=== PATIENT | male | born 1935 | race Caucasian/White ===

== ENCOUNTER → 2024-06-27 09:12 | Outpatient (REF) | payer MEDICARE, BC, SELFPAY ==
[2024-06-27 11:10] LABS: Hematocrit 33.3 % (39.0-52.0); Mean Corpuscular Hgb 38.8 pg (27.0-31.0); Mean Corpuscular Volume 107.8 fL (80.0-94.0); Mean Platelet Volume 9.8 fL (7.4-10.4); Platelet Count 120 10^3/uL (130-400); Red Blood Cell Count 3.09 10^6/uL (4.70-6.10); Red Cell Dist. Width 15.6 % (11.5-14.5); White Blood Cell Count 5.8 10^3/uL (4.8-10.8)
[2024-06-27 11:16] LABS: Glycohemoglobin (HgbA1c) 5.3 % (4.0-5.6)
[2024-06-27 11:44] LABS: ALT (SGPT) 42 U/L (0-50); AST (SGOT) 44 U/L (17-59); Albumin 4.3 g/dl (3.5-5.0); Alkaline Phosphatase 104 U/L (38-126); Blood Urea Nitrogen 24 mg/dl (9-20); Calcium 9.4 mg/dl (8.4-10.2); Carbon Dioxide 29 mmol/L (22-30); Chloride 105 mmol/L (98-107); Glucose 103 mg/dl (70-99); HDL Cholesterol 65 mg/dl; LDL Cholesterol, Calculated 44 mg/dl; Potassium 4.3 mmol/L (3.5-5.1); Sodium 143 mmol/L (135-145); Total Bilirubin 1.1 mg/dl (0.2-1.3); Total Cholesterol 133 mg/dl (50-199); Total Protein 6.7 g/dl (6.3-8.2); Triglyceride 120 mg/dl (10-149); Very Low Density Lipoprotein 24 mg/dl (0-30); eGFR > 60.00
[2024-06-27 11:54] LABS: % Basophils 0.7 % (0-2); % Eosinophils 1.4 % (0-6); % Immature Granulocytes 0.7 % (0-0.5); % Lymphocytes 27.4 % (20.5-51.1); % Neutrophils 61.8 % (42.2-75.2); Absolute Eosinophils 0.1 10^3/uL (0-0.7); Absolute Lymphocytes 1.6 10^3/uL (1.2-3.4); Absolute Monocytes 0.5 10^3/uL (0.1-0.6); Absolute Neutrophils 3.6 10^3/uL (1.4-6.5); Nucleated Red Blood Cells % 0 % (-)
[2024-06-28 17:26] LABS: PSA Total <0.1 ng/mL (0.0-4.0)
== END ==
LOC: REG 09:12
PROVIDERS: ATTENDING PHYSICIAN Internal Medicine
DX: Z00.00 Encounter for general adult medical examination without abnormal findings (principal); E78.5 Hyperlipidemia, unspecified; R73.01 Impaired fasting glucose; Z85.46 Personal history of malignant neoplasm of prostate; R53.83 Other fatigue
CPT/HCPCS: 36415; 80053; 80061; 83036; 84153; 84154; 84443; 85025

== ENCOUNTER → 2024-07-20 07:02 | Outpatient (REF) | payer MEDICARE, BC, SELFPAY | LOC: RCS 07:02 | PROVIDERS: ATTENDING PHYSICIAN Internal Medicine Cardiovascular Disease; FAMILY PHYSICIAN Internal Medicine | DX: I35.0 Nonrheumatic aortic (valve) stenosis (principal) | CPT/HCPCS: 93306 ==

== ENCOUNTER → 2024-08-10 09:12 | Outpatient (REF) | payer MEDICARE, BC, SELFPAY ==
[2024-08-10 10:11] LABS: % Basophils 0.5 % (0-2); % Immature Granulocytes 0.6 % (0-0.5); % Lymphocytes 21.9 % (20.5-51.1); Absolute Eosinophils 0.4 10^3/uL (0-0.7); Absolute Lymphocytes 1.4 10^3/uL (1.2-3.4); Absolute Monocytes 0.7 10^3/uL (0.1-0.6); Absolute Neutrophils 3.6 10^3/uL (1.4-6.5); Hemoglobin 10.9 g/dL (13.0-18.0); Mean Corpuscular Hgb 34.1 pg (27.0-31.0); Mean Corpuscular Volume 103.1 fL (80.0-94.0); Mean Platelet Volume 9.8 fL (7.4-10.4); Nucleated Red Blood Cells % 0 % (-); Platelet Count 116 10^3/uL (130-400); Red Cell Dist. Width 13.9 % (11.5-14.5); White Blood Cell Count 6.2 10^3/uL (4.8-10.8)
[2024-08-10 10:29] LABS: Albumin 3.9 g/dl (3.5-5.0); Carbon Dioxide 30 mmol/L (22-30); eGFR > 60.00
[2024-08-10 10:40] LABS: ALT (SGPT) 33 U/L (0-50); AST (SGOT) 38 U/L (17-59); Alkaline Phosphatase 92 U/L (38-126); Blood Urea Nitrogen 27 mg/dl (9-20); Calcium 8.9 mg/dl (8.4-10.2); Chloride 108 mmol/L (98-107); Glucose 99 mg/dl (70-99); Potassium 4.8 mmol/L (3.5-5.1); Sodium 139 mmol/L (135-145); Total Bilirubin 0.9 mg/dl (0.2-1.3)
[2024-08-10 11:29] LABS: Reticulocyte Count 2.7 % (0.4-2.8)
[2024-08-10 11:39] LABS: Folate > 20.0 ng/ml (2.76-20); Vitamin B12 363 pg/ml (239-931)
[2024-08-10 11:44] LABS: LDH 317 U/L (120-246)
[2024-08-11 23:13] LABS: Haptoglobin 76 mg/dL (30-200)
[2024-08-12 13:24] LABS: Number Of Markers 31 markers; Source Blood
== END ==
LOC: REG 09:12
PROVIDERS: ATTENDING PHYSICIAN Internal Medicine Hematology & Oncology; FAMILY PHYSICIAN Internal Medicine
DX: R71.8 Other abnormality of red blood cells (principal); D69.6 Thrombocytopenia, unspecified; D53.9 Nutritional anemia, unspecified
CPT/HCPCS: 36415; 80053; 82607; 82746; 82784; 83010; 83521; 83615; 84155; 84165; 85025; 85045; 86334

== ENCOUNTER → 2025-02-28 07:46 | Outpatient (REF) | payer MEDICARE, BC, SELFPAY | LOC: RAD 07:46 | PROVIDERS: ATTENDING PHYSICIAN Internal Medicine | DX: R14.0 Abdominal distension (gaseous) (principal) | CPT/HCPCS: 76700 ==

== ENCOUNTER → 2025-03-01 13:47 | Outpatient (REF) | payer MEDICARE, BC, SELFPAY ==
[2025-03-01 15:52] LABS: Hematocrit 24.5 % (39.0-52.0); Hemoglobin 8.8 g/dL (13.0-18.0); Mean Corp Hgb Conc. 35.9 g/dL (33.0-37.0); Mean Corpuscular Volume 112.9 fL (80.0-94.0); Nucleated Red Blood Cells % 0 % (-); Platelet Count 107 10^3/uL (130-400); Red Cell Dist. Width 15.5 % (11.5-14.5)
[2025-03-01 16:02] LABS: ALT (SGPT) 35 U/L (0-50); AST (SGOT) 49 U/L (17-59); Albumin 3.7 g/dl (3.5-5.0); Alkaline Phosphatase 160 U/L (38-126); Blood Urea Nitrogen 28 mg/dl (9-20); Calcium 8.8 mg/dl (8.4-10.2); Carbon Dioxide 30 mmol/L (22-30); Chloride 105 mmol/L (98-107); Glucose 101 mg/dl (70-99); Potassium 5.0 mmol/L (3.5-5.1); Sodium 136 mmol/L (135-145); Total Protein 5.9 g/dl (6.3-8.2); eGFR > 60.00
== END ==
LOC: REG 13:47
PROVIDERS: ATTENDING PHYSICIAN Internal Medicine
DX: K92.2 Gastrointestinal hemorrhage, unspecified (principal)
CPT/HCPCS: 36415; 80053; 85025

== ENCOUNTER → 2025-03-05 11:28 | Outpatient (REF) | payer MEDICARE, BC, SELFPAY ==
[2025-03-05 12:31] LABS: Hematocrit 26.7 % (39.0-52.0); Hemoglobin 9.1 g/dL (13.0-18.0); Mean Corp Hgb Conc. 34.1 g/dL (33.0-37.0); Mean Corpuscular Volume 108.1 fL (80.0-94.0); Platelet Count 129 10^3/uL (130-400); Red Cell Dist. Width 14.4 % (11.5-14.5)
[2025-03-05 13:55] LABS: Nucleated Red Blood Cells % 0 % (-)
[2025-03-05 16:14] LABS: ALT (SGPT) 29 U/L (0-50); AST (SGOT) 41 U/L (17-59); Albumin 3.8 g/dl (3.5-5.0); Alkaline Phosphatase 142 U/L (38-126); Blood Urea Nitrogen 24 mg/dl (9-20); Calcium 8.8 mg/dl (8.4-10.2); Carbon Dioxide 29 mmol/L (22-30); Chloride 106 mmol/L (98-107); Glucose 106 mg/dl (70-99); Potassium 4.8 mmol/L (3.5-5.1); Sodium 137 mmol/L (135-145); Total Protein 6.0 g/dl (6.3-8.2); eGFR > 60.00
== END ==
LOC: REG 11:28
PROVIDERS: ATTENDING PHYSICIAN Internal Medicine
DX: K92.2 Gastrointestinal hemorrhage, unspecified (principal); I10 Essential (primary) hypertension; K74.60 Unspecified cirrhosis of liver
CPT/HCPCS: 36415; 80053; 85025

== ENCOUNTER 2025-03-22 17:26 | Inpatient (IN) | payer MEDICARE, BC, SELFPAY ==
[2025-03-22] VITALS (7 sets, daily range): BP systolic 64–140; BP diastolic 49–81; BMI 32.9
[2025-03-22 13:10] LABS: Hematocrit 27.9 % (39.0-52.0); Hemoglobin 9.8 g/dL (13.0-18.0); Mean Corp Hgb Conc. 35.1 g/dL (33.0-37.0); Mean Corpuscular Volume 104.1 fL (80.0-94.0); Platelet Count 110 10^3/uL (130-400); Red Cell Dist. Width 14.4 % (11.5-14.5)
[2025-03-22 13:17] LABS: APTT 32.7 Sec (23.4-35.0)
[2025-03-22 13:23] LABS: ALT (SGPT) 25 U/L (0-50); AST (SGOT) 39 U/L (17-59); Albumin 3.3 g/dl (3.5-5.0); Alkaline Phosphatase 146 U/L (38-126); Blood Urea Nitrogen 23 mg/dl (9-20); Calcium 8.5 mg/dl (8.4-10.2); Carbon Dioxide 25 mmol/L (22-30); Chloride 107 mmol/L (98-107); Glucose 102 mg/dl (70-99); Lipase 77 U/L (23-300); Potassium 4.6 mmol/L (3.5-5.1); Sodium 136 mmol/L (135-145); Total Protein 5.5 g/dl (6.3-8.2); eGFR > 60.00
[2025-03-22 14:52] LABS: Nucleated Red Blood Cells % 0 % (-)
[2025-03-22 15:18] LABS: INR 1.02; PT 13.5 Sec (11.4-14.6)
--- NOTE | 2025-03-22 15:25 | ED.GENMED ---
History of Present Illness
General
Chief Complaint: Abdominal Pain
Source: patient
Exam Limitations: none
Time Seen by Provider: 03/22/25 15:08
Nursing documentation reviewed up to this point in time: agreed with
History of Present Illness
History of Present Illness:
The patient is a 89-year-old man sent in from for admission. Patient reports over the last month he has developed ascites. Additionally, about a month ago, he had 4 days of black stool which is now resolved. Patient is having normal brown
bowel movements. His last bowel movement was today. Patient denies all physical pain at this time but states his abdomen feels really tight and distended. He denies fevers and chills. He also reports he started to get swelling in both of his
legs. He denies being on any blood thinners.
Past History
Past History
ED Past Medical History: HTN, Hypercholesterolemia and Other (Kidney stones)
ED Past Surgical History: Appendectomy and Orthopedic (right femur)
Social History
Tobacco: Non-smoker
Alcohol: None
Drug: None
Personal:
Living: with family
Employment: Retired
Family History
Family History: Other
Review of Systems
Review of Systems
Allergies reviewed?: Yes
All Other Systems: ROS reviewed and negative except as documented in HPI and ROS
Constitutional: Reports no symptoms
EENT: Reports no symptoms
Respiratory: Reports no symptoms
Cardiac: Reports no symptoms
ABD/GI: Reports abdominal pain
: Reports no symptoms
Musculoskeletal: Reports edema
Skin: Reports no symptoms
Neurological: Reports no symptoms
Endocrine: Reports no symptoms
Hematologic/Lymphatic: Reports no symptoms
Psychiatric: Reports no symptoms
Phy Exam
Physical Exam
Physical Exam:
Physical Exam
General: Patient appears pale but in no acute respiratory distress. Walking comfortably
Neck: supple. no meningeal signs. normal psoterior pharynx
Heart: s1/s2 regular rate and rhythm, murmur present. equal radial pulses.
Lungs: no acute respiratory distress. clear bilaterally
Abdomen: Distended, firm, ascites present, hypoactive bowel sounds
Neuro: alert and oriented. no focal neurological deficits
Skin: no rash
Psychiatric: well kept. interactive and cooperative
Extremities: 2+ pitting edema. Negative Homans' sign
Course
Orders/Labs/Results
Orders:
Orders
03/22/25 12:49
Complete Blood Count/With Diff Urgent
Comprehensive Metabolic Panel Urgent
Lipase Urgent
PTT Urgent
Prothrombin Time Urgent
Comment: ADD ON
03/22/25 15:01
Add On- LAB Urgent
Tests Added?: PT/ INR
03/22/25 15:04
IRAD CONSULT Urgent
Consulting Provider: Rachel Julien
Was physician already notified: Yes
Procedure being ordered, including laterality if applicable: paracentesis
Acknowledgement that appropriate orders are entered: Yes
03/22/25 16:00
Body Fluid Cell Count Routine
What is the Body Fluid: ascites
Date Specimen was Collected: 03/22/25
Time Specimen was Collected: 15:45
Fluid Culture with Gram Stain Routine
SARWAT Source: Peritoneal Fluid
Specimen Description:
Date Specimen was Collected: 03/22/25
Time Specimen was Collected: 15:45
Abnormal Lab Results
03/22/25
12:49
RBC 2.68 L 10^6/uL
(4.70-6.10)
Hgb 9.8 L g/dL
(13.0-18.0)
Hct 27.9 L %
(39.0-52.0)
MCV 104.1 H fL
(80.0-94.0)
MCH 36.6 H pg
(27.0-31.0)
Plt Count 110 L 10^3/uL
(130-400)
Immature Gran % 0.6 H %
(0-0.5)
Monocytes % 10.0 H %
(1.7-9.3)
BUN 23 H mg/dl
(9-20)
Glucose 102 H mg/dl
(70-99)
Alkaline Phosphatase 146 H U/L
(38-126)
Total Protein 5.5 L g/dl
(6.3-8.2)
Albumin 3.3 L g/dl
(3.5-5.0)
03/22/25 12:49
03/22/25 12:49
Vital Signs
Initial and Last Documented VS:
Initial Vital Signs
Temp Pulse Resp BP Pulse Ox
98.3 F 66 18 97/58 97
03/22/25 12:26 03/22/25 12:26 03/22/25 12:26 03/22/25 12:26 03/22/25 12:26
Last Documented Vital Signs
Temp Pulse Resp BP Pulse Ox
97.8 F 64 16 124/56 97
03/22/25 15:30 03/22/25 15:30 03/22/25 15:30 03/22/25 15:30 03/22/25 15:30
MDM/Problems Addressed
Differential Diagnosis Includes:
Acute liver failure, acute renal failure, acute hyponatremia
MDM/Problems Addressed:
Patient presents with subacute ascites and edema as well as resolved history of GI bleed
Chronic conditions affecting care: HTN
Acute Exacerbation and/or Progression of Chronic Illness:
Patient's blood pressure is on the low side. I suspect this is some degree due to third spacing. Patient is not symptomatic and denies no lightheadedness. Certainly, he is not hypertensive.
Acute Exacerbation and/or Progression of Chronic Illness: HTN
*Pulse Oximetry
SaO2: 97
Oxygen Mode of Delivery: Room air
Patient hypoxic: no
*EKG
Interpreted by ED Provider?: NA
*Help Aid Interpretation
Rate: normal
Interpretation: normal
Rhythm: sinus
*Critical Care Note
Total Time (30-74mins, 75-104mins- exclusive of procedures): Not Applicable
ED Attending Note
-
Portions of this chart may have been created with voice recognition software.� Occasional wrong word or��sound alike� substitutions may have occurred due to the inherent limitations of voice recognition software.
Discharge Plan
Departure
Patient Disposition: Admit
Date of Disposition: 03/22/25
Time of Disposition: 15:37
Admit to: Med/Surg
Presentation/result/management discussed w/ accepting MD/DO: Hospitalist
Patient with high blood pressure during this ER visit?: No
Condition: Good
Covid-19: Not Applicable
Discharge Problem:
Ascites, Acute blood loss anemia
Prescriptions:
No Action
rivaroxaban [Xarelto] 15 MG tablet
15 mg PO BID Qty: 42 0RF
L.acid-L.casei-B.bif-B.mady-FOS [Probiotic Blend] 1 EACH capsule
1 ea PO DAILY
lisinopril 20 MG tablet
20 mg PO DAILY
docusate sodium 100 MG capsule
100 mg PO DAILY
atenolol 50 MG tablet
50 mg PO DAILY
magnesium 200 MG tablet
400 mg PO DAILY
cholecalciferol (vitamin D3) [Vitamin D3] 2,000 UNIT capsule
2,000 unit PO DAILY
omega 2-ksy-aoi-fish oil [Fish Oil] 1 EACH capsule
1 ea PO BID
sennosides [senna] 1 TABLET tablet
2 tab PO BID 0RF
acetaminophen 325 MG tablet
650 mg PO QID 0RF
aspirin 325 MG tablet,delayed release (DR/EC)
325 mg PO DAILY 0RF
amoxicillin-pot clavulanate 1 TABLET tablet
1 tab PO Q12 Qty: 22 0RF
Interventions
Interventions:
*General Assessment Last Done: 03/22/25 12:26
*Neglect/Abuse Screening Last Done: 03/22/25 15:19
*ED COVID-19 Vaccine History Last Done: 03/22/25 12:26
*ED Influenza Vaccine History Last Done: 03/22/25 12:26
[facility] Fall Risk Assessment Tool Last Done: 03/22/25 15:21
*Risk Screen - Suicide (C-SSRS) Last Done: 03/22/25 12:13
SK-Zuznln-Fslskbbqwl Assessment Last Done: 03/22/25 15:19
Discharge Date and Time
Print Language: PASHTO
--- NOTE | 2025-03-22 16:55 | HPS.HSE ---
Family Physician
-
Family Physician: INTERVIEWE UNKNOWN - PT NOT
Chief Complaint
-
abdominal distention
History of Present Illness
89-year-old male past medical history of hypertension, renal calculi, hypercholesteremia, presenting for ascites over the past month. A month ago he had 4 days of black stool which is now resolved. He is having normal brown bowel movements now.
Last bowel movement today. His abdomen feels solid and distended. No fevers or chills. He has swelling in both legs. He denied any shortness of breath.
He was sent in for abdominal ultrasound on 02/28 which showed ascites/cirrhosis. He was recommended to follow-up with GI and saw Dr. Julien today who sentiment to the hospital for paracentesis.
He denied significant alcohol use in the past. Denies smoking.
His father had cirrhosis from alcohol use.
Medical History
Past Medical History
Past Medical History: Reports Other (hypertension, renal calculi, hypercholesteremia)
Past Surgical History: Reports Other ( Appendectomy, nephrostolithotomy, cataract extraction, bilateral carpal tunnel release, rotator cuff surgery, hernia repair, knee surgery,)
Social History
Tobacco: Non-smoker
Alcohol: None
Drug: None
Family History
Family History: Not pertinent
Allergies / Home Medications
Allergies reflects when Allergies were last updated in [facility].
Home Medications with original date entered in [facility]
Allergy/Medication List:
Allergies
Allergy/AdvReac Type Severity Reaction Status Date / Time
No Known Allergies Allergy Verified 03/22/25 12:30
Home Medications
L.acidophil-L.casei-B.bifid-B.longum-FOS 2 billion cell-50 mg capsule (Probiotic Blend) 1 ea PO DAILY 03/14/18
atenolol 50 mg tablet 50 mg PO DAILY 03/14/18
cholecalciferol (vitamin D3) 50 mcg (2,000 unit) capsule (Vitamin D3) 2,000 unit PO DAILY 03/14/18
docusate sodium 100 mg capsule 100 mg PO DAILY 03/14/18
lisinopril 20 mg tablet 20 mg PO DAILY 03/14/18
magnesium 200 mg tablet 400 mg PO DAILY 03/14/18
omega 6-sqc-zuk-fish oil 300 mg-1,000 mg capsule (Fish Oil) 1 ea PO BID 03/14/18
acetaminophen 325 mg tablet 650 mg (2 x 325 mg) PO QID 03/24/18
amoxicillin 500 mg-potassium clavulanate 125 mg tablet 1 tab PO Q12 ##22 03/24/18
aspirin 325 mg tablet,delayed release 325 mg PO DAILY 03/24/18
sennosides 8.6 mg tablet (senna) 2 tab PO BID 03/24/18
rivaroxaban 15 mg tablet (Xarelto) 15 mg PO BID #42 tabs 03/27/18
Review of Systems
-
History Source: Patient
A 12 point ROS was completed and negative except as noted: Yes
Constitutional: Reports No Symptoms
EENT: Reports No Symptoms
Respiratory: Reports No Symptoms
Cardiac: Reports No Symptoms
Abdomen/GI: Reports See HPI
: Reports No Symptoms
Musculoskeletal: Reports No Symptoms
Skin: Reports No Symptoms
Neurological: Reports No Symptoms
Endocrine: Reports No Symptoms
Hematologic/Lymphatic: Reports No Symptoms
Psych: Reports No Symptoms
Physical Exam
Vital Signs
Vital Signs
Temp Pulse Resp BP Pulse Ox
97.8 F 64 16 124/56 97
03/22/25 15:30 03/22/25 15:30 03/22/25 15:30 03/22/25 15:30 03/22/25 15:30
Physical Exam
General: Well Developed, Well Nourished and No Apparent Distress
HEENT: NormoCephalic, Moist mucous membranes and Atraumatic
Respiratory: Clear
Cardiac: S1/S2 and Regular Rhythm; No Murmur or Rub
GI: Soft, Non Tender, Non Distended and Normal Bowel Sounds; No Organomegaly
Rectal: Deferred by Provider
Musculoskeletal: No Clubbing, No Cyanosis and No Edema
Skin: No Rash
Neuro: Nonfocal/grossly intact
Laboratory Results
-
03/22/25 12:49
03/22/25 12:49
Laboratory Results
PT 13.5 Sec (11.4-14.6) 03/22/25 12:49
INR 1.02 03/22/25 12:49
APTT 32.7 Sec (23.4-35.0) 03/22/25 12:49
Total Bilirubin 0.7 mg/dl (0.2-1.3) 03/22/25 12:49
AST 39 U/L (17-59) 03/22/25 12:49
ALT 25 U/L (0-50) 03/22/25 12:49
Alkaline Phosphatase 146 U/L (38-126) H 03/22/25 12:49
Lipase 77 U/L (23-300) 03/22/25 12:49
Data Reviewed
-
Lab Data: Labs Reviewed by me
Old Records: Reviewed
Impression/Plan
-
IMPRESSION:
PLAN:
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
- IR for paracentesis
- Fluid studies sent
- GI consulted
# Recent melena
- Now resolved
- Needs outpatient EGD
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
- Stable
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
- Hemoglobin stable 9.8
Essential hypertension
Hypercholesteremia
History of renal calculi
Full code
DVT prophylaxis -heparin
Regular diet
--- NOTE | 2025-03-22 17:22 | CM ---
Chart reviewed. Spoke with pt at ED bedside
Lives with in a split house [address]
Pt independent with ADLs and ambulation
no DME
PCP Veronica Preston
[facility] in [place]
no hx of SNF distant use of VN does not remember name
DCP is to go home no needs
and family can drive him home
CM will continue to follow up for any dcp needs
[2025-03-22 18:35] LABS: Body Fluid Second Tech CMC
--- NOTE | 2025-03-22 19:10 | PTCARENOTE ---
Received patient from ER around 183 via stretcher in stable condition. VS stable. Patient oriented to room. Call barger in reach.
[2025-03-22] MEDS: HEPARIN 5000 UNITS SC (21:06)
[2025-03-23 05:43] LABS: Hematocrit 26.8 % (39.0-52.0); Hemoglobin 9.4 g/dL (13.0-18.0); Mean Corp Hgb Conc. 35.1 g/dL (33.0-37.0); Mean Corpuscular Volume 106.8 fL (80.0-94.0); Platelet Count 115 10^3/uL (130-400); Red Cell Dist. Width 14.6 % (11.5-14.5)
[2025-03-23 06:07] LABS: ALT (SGPT) 23 U/L (0-50); AST (SGOT) 37 U/L (17-59); Albumin 2.8 g/dl (3.5-5.0); Alkaline Phosphatase 127 U/L (38-126); Blood Urea Nitrogen 22 mg/dl (9-20); Calcium 8.1 mg/dl (8.4-10.2); Carbon Dioxide 30 mmol/L (22-30); Chloride 104 mmol/L (98-107); Estimated Creatinine Clearance 54 ml/min; Glucose 97 mg/dl (70-99); Potassium 4.6 mmol/L (3.5-5.1); Sodium 136 mmol/L (135-145); Total Protein 4.9 g/dl (6.3-8.2); eGFR > 60.00
[2025-03-23 07:35] VITALS: BP 135/58
[2025-03-23 07:36] LABS: Nucleated Red Blood Cells % 0 % (-)
--- NOTE | 2025-03-23 08:20 | W.PN.HOSP.TC ---
Today's Communication/Plan
-
GI consult.
change diet to low-sodium and fluid restriction.
Consider adding diuretic
Assessment / Plan
Assessment / Plan
Impression:
The patient is an 89-year-old male with a past medical history of hypertension, renal calculi, and hypercholesterolemia, presenting with ascites for the past month. Approximately one month ago, he experienced four days of black stools, which have
since resolved; he is now having normal brown bowel movements, with the last occurring day of admit. He reports that his abdomen feels solid and distended, and he has noticed swelling in both legs. He denies fever, chills, or shortness of breath. An
abdominal ultrasound performed on 02/28 revealed ascites and cirrhosis. He was advised to follow up with gastroenterology and saw Dr. Julien today, who referred him to the hospital for paracentesis. The patient denies significant alcohol use and
smoking history. His family history is notable for his father having cirrhosis secondary to alcohol use.
Assessment/plan:
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
Abdominal Us shows:
The liver appears coarsened suggestive of chronic liver disease/cirrhosis. There is associated splenomegaly as well as small volume abdominal pelvic ascites likely secondary to portal hypertension.
Bilateral renal cysts.
The gallbladder wall appears mildly thickened which is likely sequelae of chronic liver disease
IR consulted , S/P paracentesis; fluid studies sent.
GI consulted.
Denies significant alcohol use.
Family history: father with cirrhosis due to alcohol.
Low-sodium diet with 1500 cc water restriction
May consider adding low-dose diuretic if okay with GI
Recent Melena (Resolved)
Occurred one month ago; now resolved.
Needs Endoscopic evaluation.
Gi consulted
Hemoglobin stable
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
Stable.
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
Hemoglobin stable at 9.8.
Essential Hypertension
Continue home meds once verified
Hypercholesterolemia
Continue home meds once verified
History of Renal Calculi
No acute issues currently.
Constipation Prevention
stable
CODE STATUS: Full code
DVT prophylaxis: Heparin
Diet: Low-sodium diet with 1500 cc fluid
Disposition: GI consult.
change diet to low-sodium and fluid restriction.
Consider adding diuretic
Total time spent on today's encounter was 55 minutes which included time spent in counseling the patient/family regarding diagnosis and treatment plan as listed above, goals of care, and symptom management. Case was discussed with nursing staff,
specialists, and care coordinators/case management. All labs and imaging personally reviewed by me. Remainder the time spent in detailed review of previous records, lab data, imaging, and other medical provider documentation.
Part of this note was created using voice recognition system. Occasional wrong word or �sound alike� substitutions may have inadvertently occurred due to the inherent limitations of voice recognition software. If noted kindly bring it to my
attention for correction.
Anticipated Discharge: 24 - 48 hours
Subjective/Interval History
-
Date of Service: March 23, 2025
Patient seen and examined at bedside, denies any chest pain or shortness of breath, no abdominal pain, no nausea, no vomiting, no diarrhea or constipation.
Objective Data
-
Labs:
Laboratory Results
03/23/25
05:07
WBC 5.1
Hgb 9.4 L
Hct 26.8 L
Plt Count 115 L
Sodium 136
Potassium 4.6
Chloride 104
Carbon Dioxide 30
BUN 22 H
Creatinine 1.0
Glucose 97
Calcium 8.1 L
Total Bilirubin 0.3
AST 37
ALT 23
Alkaline Phosphatase 127 H
Vital Signs:
Vital Signs
Temp Pulse Resp BP Pulse Ox
98.2 F 66 18 135/58 96
03/23/25 07:35 03/23/25 07:35 03/23/25 07:35 03/23/25 07:35 03/23/25 07:35
I&O
03/22/25 03/23/25 03/24/25
06:59 06:59 06:59
Intake Total 480 / 480
Balance 480 / 480
Physical Exam
-
General: Well Developed, Well Nourished, No Apparent Distress and Comfortable
HEENT: Normocephalic, Atraumatic, Moist Mucous Membranes, No Ptosis, PERRLA and Nose Appears Normal
Respiratory: Clear to Auscultation and Non Labored Respirations
Cardiac: Regular Rhythm and S1/S2
Breast: Deferred by me
GI: Soft, Nontender, Normal Bowel Sounds and Distended
Genito-urinary: No Costovertebral Tender
Musculoskeletal: No Clubbing, No Cyanosis and No Edema
Skin: Warm
Neuro: Awake, Alert, Oriented, AO x 3 and No Motor Deficits
Psych: Calm
Data Reviewed
-
Diagnostic Radiology: Image personally visualized and interpreted and Report Reviewed by me
CT Scan: Image personally visualized and interpreted and Report Reviewed by me
Ultrasound: Image personally visualized and interpreted and Report Reviewed by me
MRI: Image personally visualized and interpreted and Report Reviewed by me
Medical Tests (Nuc Med, Echo etc): Image personally visualized and interpreted and Report Reviewed by me
Labs: Labs Reviewed by me
Old Records: Reviewed
[2025-03-23] MEDS: HEPARIN 5000 UNITS SC ×2 (08:22→20:07)
--- NOTE | 2025-03-23 13:28 | CON.GI ---
Consultation
-
Date/Time Consultation Requested: 03/23/2025
Date/Time Consultation Performed: 03/23/2025
Requesting Provider: Hospitalist
Performing Provider: Tracy FUENTES
Reason for Consultation: cirrhosis / ascites/ black stool
Medical History
Chief Complaint / HPI
Chief Complaint: Abdominal distention
History of Present Illness:
89-year-old male with past medical history of hypertension, kidney stone, moderate MR, dyslipidemia who was advised to go to ED by Dr. Julien after being evaluated in the office yesterday for abdominal distention/black stool. Patient had a recent
ultrasound abdomen 02/28/2025 showing liver cirrhosis with ascites. Patient had 3 days of dark stool a month ago-resolved spontaneously. Currently claiming brown stool. He was not evaluated in the hospital at that time. No prior EGD. Denies any
significant alcohol use.
Last colonoscopy [address] Neville
father with hx of liver cirrhosis secondary to ETOH.
Past Medical History
Past Medical History: Other (hypertension, renal calculi, hypercholesteremia)
Past Surgical History: Other (Appendectomy, nephrostolithotomy, cataract extraction, bilateral carpal tunnel release, rotator cuff surgery, hernia repair, knee surgery,))
Social History
Tobacco: Non-Smoker
Alcohol: None
Allergies / Home Medications
Allergy/AdvReac Type Severity Reaction Status Date / Time
No Known Allergies Allergy Verified 03/22/25 12:30
�Medication �Instructions �Recorded
L.acidophil-L.casei-B.bifid-B.longum-FOS 1 ea PO DAILY Supplement 03/14/18
2 billion cell-50 mg capsule
(Probiotic Blend)
atenolol 50 mg tablet 50 mg PO DAILY Blood Pressure 03/14/18
cholecalciferol (vitamin D3) 50 2,000 unit PO DAILY Supplement 03/14/18
mcg (2,000 unit) capsule (Vitamin
D3)
docusate sodium 100 mg capsule 100 mg PO DAILY STOOL SOFTENER 03/14/18
lisinopril 20 mg tablet 20 mg PO DAILY Blood Pressure 03/14/18
magnesium 200 mg tablet 400 mg PO DAILY Supplement 03/14/18
omega 3-kup-voh-fish oil 300 1 ea PO BID Supplement 03/14/18
mg-1,000 mg capsule (Fish Oil)
acetaminophen 325 mg tablet 650 mg PO QID Pain 03/23/25
amoxicillin 500 mg-potassium 1 tab PO Q12 Infection 03/23/25
clavulanate 125 mg tablet
aspirin 325 mg tablet,delayed 325 mg PO DAILY Blood Clot 03/23/25
release Prevention/Tx
rivaroxaban 15 mg tablet (Xarelto) 15 mg PO BID Blood Clot 03/23/25
Prevention/Tx
sennosides 8.6 mg tablet (senna) 2 tab PO BID Constipation 03/23/25
Review of Systems
Vital Signs
Temp Pulse Resp BP Pulse Ox
98.2 F 66 18 135/58 96
03/23/25 07:35 03/23/25 07:35 03/23/25 07:35 03/23/25 07:35 03/23/25 10:25
Physical Exam
Exam
General: Comfortable
Respiratory: Clear
Cardiac: S1/S2
GI: Soft, Non Tender and Non Distended
Neuro: AO x 3
Results
WBC 5.1 10^3/uL (4.8-10.8) 03/23/25 05:07
Hgb 9.4 g/dL (13.0-18.0) L 03/23/25 05:07
Hct 26.8 % (39.0-52.0) L 03/23/25 05:07
MCV 106.8 fL (80.0-94.0) H 03/23/25 05:07
Plt Count 115 10^3/uL (130-400) L 03/23/25 05:07
Absolute Neuts (auto) 2.0 10^3/uL (1.4-6.5) 03/23/25 05:07
PT 13.5 Sec (11.4-14.6) 03/22/25 12:49
INR 1.02 03/22/25 12:49
APTT 32.7 Sec (23.4-35.0) 03/22/25 12:49
Sodium 136 mmol/L (135-145) 03/23/25 05:07
Potassium 4.6 mmol/L (3.5-5.1) 03/23/25 05:07
Chloride 104 mmol/L (98-107) 03/23/25 05:07
Carbon Dioxide 30 mmol/L (22-30) 03/23/25 05:07
BUN 22 mg/dl (9-20) H 03/23/25 05:07
Creatinine 1.0 mg/dL (0.7-1.3) 03/23/25 05:07
Calcium 8.1 mg/dl (8.4-10.2) L 03/23/25 05:07
Total Bilirubin 0.3 mg/dl (0.2-1.3) 03/23/25 05:07
AST 37 U/L (17-59) 03/23/25 05:07
ALT 23 U/L (0-50) 03/23/25 05:07
Alkaline Phosphatase 127 U/L (38-126) H 03/23/25 05:07
Lipase 77 U/L (23-300) 03/22/25 12:49
Diagnostic Image Results:
US abd 02/28/2025
IMPRESSION:
The liver appears coarsened suggestive of chronic liver disease/cirrhosis. There is associated splenomegaly as well as small volume abdominal pelvic ascites likely secondary to portal hypertension.
paracentesis with removal of 4500 cc fluid 03/22
Prior GI Procedures:
EGD: none
Colonoscopy: 2009-diverticulosis
Assessment / Plan
-
89-year-old male with past medical history of hypertension, kidney stone, mild to moderate MR, moderate , dyslipidemia who was advised to go to ED by Dr. Julien after being evaluated in the office yesterday for abdominal distention/black stool.
Patient had a recent ultrasound abdomen 02/28/2025 showing liver cirrhosis with ascites. Patient had 3 days of dark stool a month ago-resolved spontaneously. Currently claiming brown stool.
-- Decompensated liver cirrhosis ( MELD - Na 03/23 - 7 ) with ascites -s/p paracentesis with removal of 4500 cc fluid 03/22 . High SAAG low protein ascites. Negative for SBP
-- Black stool�currently resolved. No prior EGD. Hemoglobin stable around 9.4.
-- Macrocytic anemia. � Chronic. Previous B12/folate level normal
plan
2 g sodium diet
Would recommend starting on Lasix 40 mg/Aldactone 50 mg
Will order complete chronic liver disease workup
Avoid hepatotoxic substances
Will plan for EGD 03/25 to r/o varices
continue follow up with on discharge
Total Time Spent with Patient (in minutes): 55
-
-
Thank you for consultation and allowing me to participate in the patient's care. Please call the [facility] GI physician during the after hours with any questions or concerns.
[2025-03-23] MEDS: ALDACTONE 50 MG PO (14:13)
[2025-03-23] MEDS: LASIX 40 MG PO (14:13)
[2025-03-23 15:01] VITALS: BP 120/58
[2025-03-23 23:00] VITALS: BP 117/57
[2025-03-24 07:10] VITALS: BP 111/67
[2025-03-24] MEDS: LASIX 40 MG PO (08:10)
[2025-03-24] MEDS: ALDACTONE 50 MG PO (08:10)
[2025-03-24] MEDS: HEPARIN 5000 UNITS SC ×2 (08:10→21:23)
[2025-03-24 08:18] LABS: Hematocrit 31.0 % (39.0-52.0); Hemoglobin 10.7 g/dL (13.0-18.0); Mean Corp Hgb Conc. 34.5 g/dL (33.0-37.0); Mean Corpuscular Volume 107.3 fL (80.0-94.0); Platelet Count 147 10^3/uL (130-400); Red Cell Dist. Width 14.3 % (11.5-14.5)
[2025-03-24 08:41] LABS: ALT (SGPT) 28 U/L (0-50); AST (SGOT) 45 U/L (17-59); Albumin 3.4 g/dl (3.5-5.0); Alkaline Phosphatase 147 U/L (38-126); Blood Urea Nitrogen 23 mg/dl (9-20); Calcium 8.7 mg/dl (8.4-10.2); Carbon Dioxide 29 mmol/L (22-30); Chloride 103 mmol/L (98-107); Estimated Creatinine Clearance 61 ml/min; Glucose 110 mg/dl (70-99); Potassium 4.2 mmol/L (3.5-5.1); Sodium 136 mmol/L (135-145); Total Protein 5.7 g/dl (6.3-8.2); eGFR > 60.00
[2025-03-24 09:08] LABS: Ferritin 45.1 ng/ml (17.9-464.0)
[2025-03-24 09:43] LABS: Hepatitis B Surface Antigen Negative (Negative)
[2025-03-24 10:00] LABS: Hepatitis A Antibody, Total Negative (Negative); Hepatitis C Antibody Negative (Negative)
--- NOTE | 2025-03-24 10:15 | W.PN.HOSP.TC ---
Today's Communication/Plan
-
Continue Lasix/spironolactone.
EGD in a.m.
Assessment / Plan
Assessment / Plan
Impression:
The patient is an 89-year-old male with a past medical history of hypertension, renal calculi, and hypercholesterolemia, presenting with ascites for the past month. Approximately one month ago, he experienced four days of black stools, which have
since resolved; he is now having normal brown bowel movements, with the last occurring day of admit. He reports that his abdomen feels solid and distended, and he has noticed swelling in both legs. He denies fever, chills, or shortness of breath. An
abdominal ultrasound performed on 02/28 revealed ascites and cirrhosis. He was advised to follow up with gastroenterology and saw Dr. Julien today, who referred him to the hospital for paracentesis. The patient denies significant alcohol use and
smoking history. His family history is notable for his father having cirrhosis secondary to alcohol use.
Assessment/plan:
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
Abdominal Us shows:
The liver appears coarsened suggestive of chronic liver disease/cirrhosis. There is associated splenomegaly as well as small volume abdominal pelvic ascites likely secondary to portal hypertension.
Bilateral renal cysts.
The gallbladder wall appears mildly thickened which is likely sequelae of chronic liver disease
IR consulted , S/P paracentesis; fluid studies sent.
GI consulted.
Denies significant alcohol use.
Family history: father with cirrhosis due to alcohol.
Low-sodium diet with 1500 cc water restriction
03/24
Added Lasix and spironolactone.
For EGD in a.m.
Recent Melena (Resolved)
Occurred one month ago; now resolved.
Needs Endoscopic evaluation.
Gi consulted
Hemoglobin stable
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
Stable.
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
Hemoglobin stable at 9.8.
Essential Hypertension
Continue home meds once verified
Hypercholesterolemia
Continue home meds once verified
History of Renal Calculi
No acute issues currently.
Constipation Prevention
stable
CODE STATUS: Full code
DVT prophylaxis: Heparin
Diet: Low-sodium diet with 1500 cc fluid
Disposition: Continue Lasix/spironolactone.
EGD in a.m.
Total time spent on today's encounter was 55 minutes which included time spent in counseling the patient/family regarding diagnosis and treatment plan as listed above, goals of care, and symptom management. Case was discussed with nursing staff,
specialists, and care coordinators/case management. All labs and imaging personally reviewed by me. Remainder the time spent in detailed review of previous records, lab data, imaging, and other medical provider documentation.
Part of this note was created using voice recognition system. Occasional wrong word or �sound alike� substitutions may have inadvertently occurred due to the inherent limitations of voice recognition software. If noted kindly bring it to my
attention for correction.
Anticipated Discharge: 24 - 48 hours
Subjective/Interval History
-
Date of Service: March 24, 2025
Patient seen and examined at bedside, denies any chest pain or shortness of breath, no abdominal pain, no nausea, no vomiting, no diarrhea or constipation.
Objective Data
-
Labs:
Laboratory Results
03/24/25
07:37
WBC 5.2
Hgb 10.7 L
Hct 31.0 L
Plt Count 147 D
Sodium 136
Potassium 4.2
Chloride 103
Carbon Dioxide 29
BUN 23 H
Creatinine 0.9
Glucose 110 H
Calcium 8.7
Total Bilirubin 0.8
AST 45
ALT 28
Alkaline Phosphatase 147 H
Vital Signs:
Vital Signs
Temp Pulse Resp BP Pulse Ox
97.4 F 68 16 111/67 100
03/24/25 07:10 03/24/25 08:10 03/24/25 07:10 03/24/25 08:10 03/24/25 07:10
I&O
03/23/25 03/24/25 03/25/25
06:59 06:59 06:59
Intake Total 480 / 480 1200 / 1200 480 / 480
Balance 480 / 480 1200 / 1200 480 / 480
Physical Exam
-
General: Well Developed, Well Nourished, No Apparent Distress and Comfortable
HEENT: Normocephalic, Atraumatic, Moist Mucous Membranes, No Ptosis, PERRLA and Nose Appears Normal
Respiratory: Clear to Auscultation and Non Labored Respirations
Cardiac: Regular Rhythm and S1/S2
Breast: Deferred by me
GI: Soft, Nontender, Normal Bowel Sounds and Distended
Genito-urinary: No Costovertebral Tender
Musculoskeletal: No Clubbing, No Cyanosis and No Edema
Skin: Warm
Neuro: Awake, Alert, Oriented, AO x 3 and No Motor Deficits
Psych: Calm
--- NOTE | 2025-03-24 13:01 | W.PN.GI.CBS2 ---
Today's Communication / Plan
-
EGD tomorrow 03/25
NPO after MN today
Assessment / Plan
-
89-year-old male with past medical history of hypertension, kidney stone, mild to moderate MR, moderate , dyslipidemia who was advised to go to ED by Dr. Julien after being evaluated in the office yesterday for abdominal distention/black stool.
Patient had a recent ultrasound abdomen 02/28/2025 showing liver cirrhosis with ascites. Patient had 3 days of dark stool a month ago-resolved spontaneously. Currently claiming brown stool.
-- Decompensated liver cirrhosis ( MELD - Na 03/23 - 7 ) with ascites -s/p paracentesis with removal of 4500 cc fluid 03/22 . High SAAG low protein ascites. Negative for SBP
-- Black stool�currently resolved. No prior EGD. Hemoglobin stable around 9.4.
-- Macrocytic anemia. � Chronic. Previous B12/folate level normal
plan
2 g sodium diet
continue Lasix 40 mg/Aldactone 50 mg
complete chronic liver disease workup ordered - pending
Avoid hepatotoxic substances
Will plan for EGD 03/25 to r/o varices
continue follow up with on discharge
Total Time Spent with Patient (in minutes): 35
Subjective
Subjective
Date of Service: March 24, 2025
No GI complaints
Objective
Data Reviewed
Laboratory Data:
Laboratory Results
03/24/25 07:37
03/24/25 07:37
Laboratory Results
PT 13.5 Sec (11.4-14.6) 03/22/25 12:49
INR 1.02 03/22/25 12:49
APTT 32.7 Sec (23.4-35.0) 03/22/25 12:49
Total Bilirubin 0.8 mg/dl (0.2-1.3) 03/24/25 07:37
AST 45 U/L (17-59) 03/24/25 07:37
ALT 28 U/L (0-50) 03/24/25 07:37
Alkaline Phosphatase 147 U/L (38-126) H 03/24/25 07:37
Lipase 77 U/L (23-300) 03/22/25 12:49
Vital Signs and I&O:
Vital Signs
Temp Pulse Resp BP Pulse Ox
97.4 F 68 16 111/67 100
03/24/25 07:10 03/24/25 08:10 03/24/25 07:10 03/24/25 08:10 03/24/25 07:10
I&O
03/23/25 03/24/25 03/25/25
06:59 06:59 06:59
Intake Total 480 / 480 1200 / 1200 480 / 480
Balance 480 / 480 1200 / 1200 480 / 480
Physical Exam
Physical Exam
GI: Soft, Distended (Mildly distended) and Non Tender
[2025-03-24 15:00] VITALS: BP 114/55
[2025-03-24 23:06] VITALS: BP 138/54
[2025-03-25 07:01] LABS: Hematocrit 26.5 % (39.0-52.0); Hemoglobin 8.9 g/dL (13.0-18.0); Mean Corp Hgb Conc. 33.6 g/dL (33.0-37.0); Mean Corpuscular Volume 103.9 fL (80.0-94.0); Platelet Count 132 10^3/uL (130-400); Red Cell Dist. Width 14.1 % (11.5-14.5)
[2025-03-25 07:15] VITALS: BP 135/56
[2025-03-25 07:39] LABS: ALT (SGPT) 23 U/L (0-50); AST (SGOT) 34 U/L (17-59); Albumin 2.6 g/dl (3.5-5.0); Alkaline Phosphatase 125 U/L (38-126); Blood Urea Nitrogen 20 mg/dl (9-20); Calcium 8.0 mg/dl (8.4-10.2); Carbon Dioxide 28 mmol/L (22-30); Chloride 103 mmol/L (98-107); Estimated Creatinine Clearance 61 ml/min; Glucose 100 mg/dl (70-99); Potassium 4.3 mmol/L (3.5-5.1); Sodium 133 mmol/L (135-145); Total Protein 4.6 g/dl (6.3-8.2); eGFR > 60.00
[2025-03-25 09:09] VITALS: BP 90/55
[2025-03-25 09:53] VITALS: BP 115/54
[2025-03-25] MEDS: LASIX 40 MG PO (10:27)
[2025-03-25] MEDS: ALDACTONE 50 MG PO (10:27)
[2025-03-25] MEDS: HEPARIN SC (10:27)
--- NOTE | 2025-03-25 10:54 | W.PN.HOSP.TC ---
Today's Communication/Plan
-
DC home today
Assessment / Plan
Assessment / Plan
Impression:
The patient is an 89-year-old male with a past medical history of hypertension, renal calculi, and hypercholesterolemia, presenting with ascites for the past month. Approximately one month ago, he experienced four days of black stools, which have
since resolved; he is now having normal brown bowel movements, with the last occurring day of admit. He reports that his abdomen feels solid and distended, and he has noticed swelling in both legs. He denies fever, chills, or shortness of breath. An
abdominal ultrasound performed on 02/28 revealed ascites and cirrhosis. He was advised to follow up with gastroenterology and saw Dr. Julien today, who referred him to the hospital for paracentesis. The patient denies significant alcohol use and
smoking history. His family history is notable for his father having cirrhosis secondary to alcohol use.
Assessment/plan:
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
Abdominal Us shows:
The liver appears coarsened suggestive of chronic liver disease/cirrhosis. There is associated splenomegaly as well as small volume abdominal pelvic ascites likely secondary to portal hypertension.
Bilateral renal cysts.
The gallbladder wall appears mildly thickened which is likely sequelae of chronic liver disease
IR consulted , S/P paracentesis; fluid studies sent. negative for SBP. Cultures no growth for 48 hours
GI consulted.
s/p EGD Findings:
- Grade I varices were found in the lower third of the esophagus.
They were small in size.
- The Z-line was irregular and was found at the gastroesophageal
junction. 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 Not
biopsied given recent melena, cirrhosis.
- A 5 cm hiatal hernia was present.
- The entire examined stomach was normal.
- The examined duodenum was normal.
Impression:
- Grade I esophageal varices.
- Z-line irregular, at the gastroesophageal junction.
- 5 cm hiatal hernia.
- Normal stomach.
- Normal examined duodenum.
- No specimens collected.
Recommendation:
- Resume regular diet.
- Continue present medications.
No clear explanation for drop in hemoglobin and dark stool from one
month ago.
I discussed with patient at length re: colonoscopy he wishes to defer
for now.
OK from GI POV for discharge - I sent a msg to his outpatient GI and
PCP
Needs CBC and BMP monitored outpatient recommend repeat one week.
Being sent home on lasix 20 and aldactone 50. Would also start
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
Low-sodium diet with 1500 cc water restriction
hemoglobin fluctuating but stable at 8.9
cleared from GI for discharge
Follow up chronic liver disease labs with GI as outpatient. Pending at this time.
Recent Melena (Resolved)
Occurred one month ago; now resolved.
EGD as above
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
Stable.
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
Hemoglobin stable at 9.8.
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 outpatient follow up
Essential Hypertension
Continue home meds once verified
Hypercholesterolemia
Continue home meds once verified
History of Renal Calculi
No acute issues currently.
Constipation Prevention
stable
CODE STATUS: Full code
DVT prophylaxis: Heparin
Diet: Low-sodium diet with 1500 cc fluid
Disposition: Continue Lasix/spironolactone.
DC home today
Total time spent on today's encounter was 55 minutes which included time spent in counseling the patient/family regarding diagnosis and treatment plan as listed above, goals of care, and symptom management. Case was discussed with nursing staff,
specialists, and care coordinators/case management. All labs and imaging personally reviewed by me. Remainder the time spent in detailed review of previous records, lab data, imaging, and other medical provider documentation.
Part of this note was created using voice recognition system. Occasional wrong word or �sound alike� substitutions may have inadvertently occurred due to the inherent limitations of voice recognition software. If noted kindly bring it to my
attention for correction.
Anticipated Discharge: Today
Subjective/Interval History
-
Date of Service: March 25, 2025
Patient seen and examined
s/p EGD
No complaints
had normal brown bowel movement
no chest pain shortness of breath abdominal pain
no nausea vomiting
Objective Data
-
Labs:
Laboratory Results
03/25/25
06:06
WBC 4.7 L
Hgb 8.9 L
Hct 26.5 L
Plt Count 132
Sodium 133 L
Potassium 4.3
Chloride 103
Carbon Dioxide 28
BUN 20
Creatinine 0.9
Glucose 100 H
Calcium 8.0 L
Total Bilirubin 0.3
AST 34
ALT 23
Alkaline Phosphatase 125
Vital Signs:
Vital Signs
Temp Pulse Resp BP Pulse Ox
98.2 F 66 16 115/54 99
03/25/25 09:53 03/25/25 10:27 03/25/25 09:53 03/25/25 10:27 03/25/25 09:53
I&O
03/24/25 03/25/25 03/26/25
06:59 06:59 06:59
Intake Total 1200 / 1200 480 / 480
Balance 1200 / 1200 480 / 480
Review of Systems
-
All other systems: Reviewed and negative
Physical Exam
-
General: Well Developed, Well Nourished and No Apparent Distress
HEENT: Normocephalic and Atraumatic
Respiratory: Clear to Auscultation
Cardiac: Regular Rhythm and S1/S2
GI: Soft, Nontender, Nondistended and Normal Bowel Sounds
Musculoskeletal: No Cyanosis
Skin: Warm
Neuro: AO x 3, No Motor Deficits and Nonfocal/Grossly Intact
Psych: Calm
Data Reviewed
-
Ultrasound: Report Reviewed by me and Discussed with Patient
Medical Tests (Nuc Med, Echo etc): Report Reviewed by me, Discussed with Physician and Discussed with Patient
Labs: Labs Reviewed by me, Discussed with Physician and Discussed with Patient
[2025-03-25 13:55] LABS: Folate > 20.0 ng/ml (2.76-20); Vitamin B12 419 pg/ml (239-931)
[2025-03-25 14:20] VITALS: BP 134/64
--- NOTE | 2025-03-25 14:23 | CM ---
Patient has been medically cleared for discharge to home with no additional skilled services. Patient has arranged for transport home.
[2025-03-25 14:31] LABS: ANA, IgG Reflex to HEp-2 None Detected (None Detected)
--- NOTE | 2025-03-25 14:32 | W.DCSUMMARY ---
Discharge Summary
Discharge Data
Date of Admission: 03/22/25
Date of Discharge: 03/25/25
-
Pending Results: Yes
Hospital Course
The patient is an 89-year-old male with a past medical history of hypertension, renal calculi, and hypercholesterolemia, presenting with ascites for the past month. Approximately one month ago, he experienced four days of black stools, which have
since resolved; he is now having normal brown bowel movements, with the last occurring day of admit. He reports that his abdomen feels solid and distended, and he has noticed swelling in both legs. He denies fever, chills, or shortness of breath. An
abdominal ultrasound performed on 02/28 revealed ascites and cirrhosis. He was advised to follow up with gastroenterology and saw Dr. Julien today, who referred him to the hospital for paracentesis. The patient denies significant alcohol use and
smoking history. His family history is notable for his father having cirrhosis secondary to alcohol use.
Abdominal Us shows:
The liver appears coarsened suggestive of chronic liver disease/cirrhosis. There is associated splenomegaly as well as small volume abdominal pelvic ascites likely secondary to portal hypertension.
Bilateral renal cysts.
The gallbladder wall appears mildly thickened which is likely sequelae of chronic liver disease
IR consulted , S/P paracentesis; fluid studies sent. negative for SBP. Cultures no growth for 48 hours
GI consulted.
s/p EGD Findings: - Grade I varices were found in the lower third of the esophagus.
They were small in size.
- The Z-line was irregular and was found at the gastroesophageal
junction. 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 Not
biopsied given recent melena, cirrhosis.
- A 5 cm hiatal hernia was present.
- The entire examined stomach was normal.
- The examined duodenum was normal.
Impression:
- Grade I esophageal varices.
- Z-line irregular, at the gastroesophageal junction.
- 5 cm hiatal hernia.
- Normal stomach.
- Normal examined duodenum.
- No specimens collected.
Recommendation:
- Resume regular diet.
- Continue present medications.
No clear explanation for drop in hemoglobin and dark stool from one
month ago.
I discussed with patient at length re: colonoscopy he wishes to defer
for now.
OK from GI POV for discharge - I sent a msg to his outpatient GI and
PCP
Needs CBC and BMP monitored outpatient recommend repeat one week.
Being sent home on lasix 20 and aldactone 50. Would also start
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
Low-sodium diet with 1500 cc water restriction
hemoglobin fluctuating but stable at 8.9
cleared from GI for discharge
Follow up chronic liver disease labs with GI as outpatient. Pending at this time.
Discharge Plan
-
Patient Disposition: Home (Routine Discharge)
Discharge Diagnosis/Procedures: Liver cirrhosis
ascites
Melena
Anemia
Diet: Low Sodium and Restrict fluids to 48 oz
Activity: No restrictions
Blood Work: BMP , cbc in one week
Others Tests: Follow up chronic liver disease tests results with Gastroenterology . Pending at the time of discharge
Referrals:
PCP [Other] - in less than 1 week
Rachel Julien MD [Active, Gastroenterology] - in one to two weeks
Prescriptions:
New
furosemide 40 mg Tablet
40 mg PO DAILY 30 Days Qty: 30 0RF
spironolactone 50 mg Tablet
50 mg PO DAILY 30 Days Qty: 30 0RF
Continued
multivit with min-folic acid [Multivitamin Gummies] 200 mcg Tablet,Chewable
200 tab PO DAILY
calcium
PO DAILY
vitamin B complex Capsule
1 cap PO DAILY
Probiotic Blend 1 EACH capsule
1 ea PO DAILY
magnesium 200 MG tablet
400 mg PO DAILY
cholecalciferol (vitamin D3) [Vitamin D3] 2,000 UNIT capsule
2,000 unit PO DAILY
omega [id number]-tso-jjs-fish oil [Fish Oil] 1 EACH capsule
1 ea PO BID
Discontinued
acetaminophen 325 MG tablet
650 mg PO BID
lisinopril 20 MG tablet
40 mg PO BID
atenolol 50 MG tablet
50 mg PO DAILY
Discharge Orders:
Discharge Patient (As Directed); Ordered 03/25/25
Ordered By: Gab Khan
Discharge Date and Time
Print Language: [email or web address]
[2025-03-25 14:36] LABS: Mitochondrial M2 Ab, IgG 11.4 Units (0.0-24.9)
[2025-03-25 19:24] LABS: AFP Male/Tumor Marker 1.74 ng/ml
[2025-03-25 22:00] LABS: LKM-1 Ab (IgG) 1.3 U (0.0-24.9)
[2025-03-26 21:28] LABS: Soluble Liver Antigen Ab 2.6 U (0.0-24.9)
== END 2025-03-25 14:33 | disposition home or self-care (01) | DRG 442 ==
LOC: 2 SOUTH 17:26
PROVIDERS: General Practice; Internal Medicine Gastroenterology; Physician Assistant; Radiology Vascular & Interventional Radiology; Student in an Organized Health Care Education/Training Program; ADMITTING PHYSICIAN Hospitalist; ATTENDING PHYSICIAN Internal Medicine; CONSULT PHYSICIAN Internal Medicine Gastroenterology; EMERGENCY PHYSICIAN Emergency Medicine
PROC: 0W9G3ZZ Drainage of Peritoneal Cavity, Percutaneous Approach (ICD-10-PCS; 2025-03-23)
PROC: 0DJ08ZZ Inspection of Upper Intestinal Tract, Via Natural or Artificial Opening Endoscopic (ICD-10-PCS; 2025-03-25)
DX: K75.81 Nonalcoholic steatohepatitis (NASH) (principal); D62 Acute posthemorrhagic anemia; I85.00 Esophageal varices without bleeding; D69.59 Other secondary thrombocytopenia; D63.8 Anemia in other chronic diseases classified elsewhere; D53.9 Nutritional anemia, unspecified; I10 Essential (primary) hypertension; E78.00 Pure hypercholesterolemia, unspecified; K22.89 Other specified disease of esophagus; Z79.01 Long term (current) use of anticoagulants; Z79.82 Long term (current) use of aspirin; Z87.891 Personal history of nicotine dependence; K22.70 Barrett's esophagus without dysplasia; K44.9 Diaphragmatic hernia without obstruction or gangrene
CPT/HCPCS: 49083; 80053; 82042; 82105; 82390; 82607; 82728; 82746; 83516; 83690; 84157; 85025; 85027; 85610; 85730; 86038; 86376; 86381; 86704; 86706; 86708; 86803; 87015; 87070; 87205; 87340; 89051; 99284